=== PATIENT | female | born 1990 | race Caucasian/White ===

== ENCOUNTER → 2017-10-23 10:01 | Outpatient (CLI) | payer OTHER, MEDICAID, SELFPAY ==
[2017-10-23 11:19] LABS: Absolute Lymphocyte Count 1.88 X10^3/ul (0.83-4.51); Absolute Neutrophil Count 7.3 X10^3/uL (2.0-7.7); Basophil# 0.03 X10^3/uL; Basophil% 0.3 % (0-1); Eosinophil# 0.06 X10^3/uL; Eosinophils% 0.6 % (0-5); Hematocrit 39.5 % (37-47); Lymphocyte # 1.88 X10^3/ul (4.0); Lymphocyte % 19.4 % (19-41); Mean Corp Hgb Conc 32.9 g/gl (32-36); Mean Corpuscular Hgb 26.2 pg (27.0-32.0); Mean Corpuscular Volume 79.6 fL (81-99); Mean Platelet Vol. 9.9 fl (6.2-12.0); Monocyte# 0.38 X10^3/uL; Monocyte% 3.9 % (0-10); Neutrophil # 7.34 X10^3/uL (2.7-7.7); Neutrophil % 75.7 % (47-70); Platelet Count 298 K/mm3 (150-450); RBC Distribution Width CV 13.8 % (11.6-14.6); RBC Distribution Width SD 39.1 fl (35.1-43.9); Red Blood Count 4.96 M/mm3 (4.2-5.4); White Blood Count 9.7 K/mm3 (4.4-11.0)
[2017-10-23 11:24] LABS: POSITIVE COUNT NO; POSITIVE DIFFERENTIAL NO; POSITIVE MORPHOLOGY NO
[2017-10-23 11:52] LABS: ALB/GLOB Ratio 0.7 RATIO (0.9-2.4); AST(SGOT) 15 U/L (15-37); Alanine Aminotransfer ALT/SGPT 23 U/L (13-56); Albumin, Serum 3.3 g/dL (3.2-5.0); Alkaline Phosphatase 92 U/L (45-117); Anion Gap 8 (5-15); BUN 9 mg/dL (7-18); BUN/Creat Ratio 13.5 RATIO (10-20); Calcium,Total 8.6 mg/dL (8.5-10.1); Chloride 104 mmol/L (98-107); Creatinine, Serum 0.67 mg/dL (0.55-1.02); EST Glomerular Filtration Rate 111 mL/min (>60); Est Glom Filt Rate - Afr Amer 134 mL/min (>60); Globulin 4.8 g/dL (2.2-4.2); Glucose 132 mg/dL (74-106); LDH 199 U/L (84-246); Potassium 3.5 mmol/L (3.5-5.1); Protein, Total 8.1 g/dL (6.4-8.2); Sodium Level 136 mmol/L (136-145)
[2017-10-23 12:29] LABS: HIV - WCH Non-Reactive (Nonreactive); Rubella IgG 283.9 IU/mL
[2017-10-23 22:36] LABS: Chlamydia Trachomatis by PCR Negative (Negative); Neisserai gonorrhoeae by PCR Negative (Negative); Probe Check PASS; Sample Adequacy Control PASS; Specimen Processing Control PASS
[2017-10-26 13:04] LABS: HPV Reflexed? NOT INDICATED
[2017-10-27 01:08] LABS: Rapid Plasmin Reagin (RPR) NONREACTIVE (NONREACTIVE)
[2017-10-28 13:41] LABS: HEPATITIS B SURFACE AG Negative (Negative)
== END ==
PROVIDERS: Visit Provider Obstetrics & Gynecology
DX: Z12.4 Encounter for screening for malignant neoplasm of cervix (principal); O10.919 Unspecified pre-existing hypertension complicating pregnancy, unspecified trimester; Z3A.08 8 weeks gestation of pregnancy
CPT/HCPCS: 36415; 80053; 81220; 83615; 84550; 85025; 86592; 86703; 86762; 86850; 86900; 87086; 87088; 87340; 87491; 87591; 88175; G0145

== ENCOUNTER 2017-11-08 13:34 | Day surgery (SDC) | payer OTHER, MEDICAID, SELFPAY ==
--- NOTE | 2017-11-07 22:52 | PCM.HPOB.BLA ---
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 Is patient in pain?: No Allergies No Known Allergies Allergy (Unverified 11/07/17 14:30) Medications levothyroxine 200 mcg tablet 200 mcg PO DAILY 10/23/17 [History Confirmed 11/07/17] vitamin,calcium,qkmzhcff-ylcu-nudcc acid tablet 1 tab PO QDAY 10/23/17 [History Confirmed 11/07/17] blood pressure monitor kit See Dose Instructions .ROUTE .MEDSUPPLY #1 ea 10/26/17 [Rx Confirmed 11/06/17] Labetalol HCl 200 mg PO BID 11/07/17 [History Confirmed 11/07/17] Last Menstral Period: 08/28/17 Zika: Zika virus screening: Negative : No PFSH PFSH Medical History Thyroid disease (Acute) Surgical History kidney stone removal (Acute) Family History Grandfather Hyperlipidemia Social History Smoking Status: Never smoker alcohol intake: never substance use type: does not use caffeine: No frequency: 1-2 times per week seatbelt use: always do you feel safe at home: Yes additional social history: 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 She is still having persistent bleeding with some crmaping but denies any fevers. s he bleeds a few clots that are small and cahnges a pad every few hours. OB Visit [facility] Calculator Estimated Delivery Date 06/04/18 Based on LMP (certain) 08/28/17 Current WG 10w 1d Number 1 Expected Delivery Route/Plan Specific Issue/Plans flu vaccine declined Initial Weight: Not Recorded Date EGA Weight BP Urine Prot Glucose FHR FuHt Pres Mov CTX Dilation Effaced St Visit Note Provider Comments 10/30/17 9w 0d 11/06/17 10w 0d 226 lb 8 oz 135/90 ACOG First Trimester First Trimester: Desire for , Alcohol, Tobacco Cessation, Illicit/Recreational Drug/Substance Use, Intimate Partner Violence, Barriers to care, Unstable Housing, Communication Barriers, Environmental/Work Hazards, Anticipated Course of Care, Toxoplasmosis Precations, Use of Any medications, Sexual activity, Exercise, Dental Care, Sauna/Hot tub use, Seat Belt use, Childbirth classes/Hospital facilities, , Travel, Indications for US and Screening for Aneuploidy Diagnostics Diagnostics Labs Blood Type B POSITIVE 10/23/17 Antibody Screen NEGATIVE 10/23/17 Hct 39.5 % (37-47) 10/23/17 Hgb 13.0 g/dl (12.0-15.0) 10/23/17 Rubella IgG Antibody 283.9 IU/mL 10/23/17 RPR NONREACTIVE (NONREACTIVE) 10/23/17 Hep Bs Antigen Negative (Negative) 10/23/17 Chlam trachomat DNA PCR Negative (Negative) 10/23/17 N.gonorrhoeae DNA (PCR) Negative (Negative) 10/23/17 Details: HIV: Urine Culture: Sequential Screen: NIPT Screen: ROS Const Reports as per HPI, Denies fever(s) ENT Reports system reviewed and no additional complaints, except as docu Card Reports system reviewed and no additional complaints, except as docu Resp Reports system reviewed and no additional complaints, except as docu GI Reports as per HPI Reports abnormal vaginal bleeding, Reports as per HPI Musc Reports system reviewed and no additional complaints, except as docu Skin/Breast Reports system reviewed and no additional complaints, except as docu Neuro Yes system reviewed and no additional complaints, except as docu Endo Reports system reviewed and no additional complaints, except as docu Exam Const General: healthy appearing, comfortable, no acute distress HENMT Head: normal to inspection, normocephalic Neck Neck: no lymphadenopathy noted Thyroid: thyroid normal Chest Chest palpation & inspection: normal inspection of the chest Resp Effort & Inspection: normal respiratory effort Cardio Rate: regular rate Rhythm: regular rhythm GI Inspection: normal to inspection Palpation: soft, nontender External Female Exam: normal external appearance Speculum Exam - Vagina: normal appearance of the vagina, vaginal bleeding Bimanual Exam- Vagina & Uterus: uterine shape normal, uterus non-tender OB/External & Speculum: vaginal bleeding Speculum Exam: vaginal bleeding Skin General: no rashes or lesions noted Neuro General: no focal motor deficits Extrem General: normal to inspection, no pedal edema Psych Appearance: grossly normal Assessment & Plan Problems 1. Incomplete O03.4 Plan ultrasound performed and incomplete diagnosed. discussed with patient options and patient wishes to proceed with suction d and c on monday. will schedule for procedure. 11/08/17 patient seen and h and p reviewed no clinical updates needed Patricia Roberson
[2017-11-08 13:59] VITALS: BP 132/88; PULSE 97; RESP 18; TEMP 36.7; O2SAT 100; BMI 45.3
[2017-11-08 14:11] LABS: Hematocrit 39.3 % (37-47); Hemoglobin 12.7 g/dl (12.0-15.0); Mean Corp Hgb Conc 32.3 g/gl (32-36); Mean Corpuscular Hgb 25.9 pg (27.0-32.0); Mean Platelet Vol. 9.6 fl (6.2-12.0); Platelet Count 277 K/mm3 (150-450); RBC Distribution Width SD 40.2 fl (35.1-43.9); Red Blood Count 4.91 M/mm3 (4.2-5.4); White Blood Count 9.4 K/mm3 (4.4-11.0)
[2017-11-08 14:12] LABS: Scan Indicated on CBC? Y/N NO
[2017-11-08] MEDS: Doxycycline 100 MG CAPSULE PO (14:15)
--- NOTE | 2017-11-08 15:00 | POC_PTH ---
PATIENT: KAE WATTERS [place] [facility] [id number] AGE/SX: 26/F ROOM: RE11/08/[address]: Dr. Patricia Roberson MD : [id number] BED: DIS: 11/08/2017 SPEC #: [id number] RECD: 11/08/17 16:04 STATUS: SANTO LOLY #: [id number] NOÉ: 11/08/17 15:[address]: Patricia Roberson DEPT: SURGICAL PATHOLOGY RECD BY: Reza Marks ENTERED: 11/09/17 08:19 SP TYPE: PROD CONC OTHR DR: No Primary Care Phys Tissues: Product of conception, NOS Procedures: Surgery Specimen Level IV HEADER OPERATION: Dilatation and curettage, suction PRE-OP DIAGNOSIS: Incomplete TISSUE SUBMITTED: Products of conception MICROSCOPIC DIAGNOSIS Endometrium, curettage: Chorionic villi, decidualized stroma and trophoblastic cells consistent with products of conception. AM:anna 11/10/17 MICROSCOPIC DESCRIPTION Slides are reviewed. GROSS DESCRIPTION Received in fixative is one container labeled with the patient's name and designated products of conception. The specimen consists of multiple pieces of pink-red soft tissue that in aggregate measure 8 x 7 x 1.5 cm. tissue is not identified. Sole Ruffer tissue is submitted in two cassettes. The specimen will be given to patient after finishing the diagnosis. / MILTON:anna 11/09/17 TC:5 CPT: 07012
--- NOTE | 2017-11-08 15:01 | PCM.OPRPT ---
Problem List (1) Incomplete Status: Acute Report of Operation Date of Procedure: 11/08/17 Pre-Operative Diagnosis: incomplete ab Post-Operative Diagnosis: same Surgery/Procedure Performed:: suction d and c Type of Anesthesia:: Local MAC Specimen's removed: products of conception Estimated Blood Loss (mL): 100 cc Fluids Replaced: crystalloid Description of Procedure: Patient was evaluated preoperatively and found to have a missed at 1 weeks of with a pole only measuring 8 weeks 4 days with no heart tones seen. Patient was counseled and offered medical management versus surgical and patient chose suction D&C. Patient received IV anesthesia was prepped and draped in normal sterile fashion in the dorsal lithotomy position. Cervix was grasped with ring forceps and previously dilated to allow passage of a 8 mm suction curette. Uterus sounded 9 cm. Multiple passes were made with the suction curette to remove products of conception and then sharp curettage was formed to confirm all removal of packs of conception. All instruments were removed from the vagina and patient was awoken and taken recovery in stable condition. Grafts/Implants Used: none - Complications none
--- NOTE | 2017-11-08 15:01 | PCM.DC.D&C ---
Discharge Diet: No Restrictions Discharge Activity: Return to Normal Activity, May Shower, May Take a Tub Bath Allergies/Adverse Reactions: Allergies No Known Allergies Allergy (Unverified 11/07/17 14:30) Medications to take at Discharge levothyroxine 200 mcg tablet 200 mcg PO DAILY 10/23/17 vitamin,calcium,yiyiqsot-zzcy-syrew acid tablet 1 tab PO QDAY 10/23/17 blood pressure monitor kit See Dose Instructions .ROUTE .MEDSUPPLY #1 ea 10/26/17 Labetalol HCl 200 mg PO BID 11/07/17 Primary Care Physician: Care Physician,No Primary [Primary Care Provider] - Please Follow Up With: Patricia Roberson MD - [phone]
[2017-11-08 15:30] VITALS: BP 117/85; BP 132/88; PULSE 98; RESP 16; TEMP 36.4; O2SAT 100
[2017-11-08 15:35] VITALS: BP 132/88; BP 133/94; PULSE 92; RESP 16; O2SAT 100
[2017-11-08 15:40] VITALS: BP 118/81; BP 132/88; PULSE 90; RESP 16; O2SAT 100
[2017-11-08 15:45] VITALS: BP 132/88; BP 133/92; PULSE 98; RESP 16; TEMP 36.3; O2SAT 100
[2017-11-08 16:53] VITALS: BP 132/88
== END 2017-11-08 17:00 | disposition home or self-care (01) ==
LOC: SDC 13:36 → ACINP 13:38
PROVIDERS: Visit Provider Obstetrics & Gynecology
PROC: (CPT 59812; principal; 2017-11-08 14:45)
DX: O03.4 Incomplete spontaneous abortion without complication (principal); E07.9 Disorder of thyroid, unspecified; Z79.899 Other long term (current) drug therapy; I10 Essential (primary) hypertension
CPT/HCPCS: 01965; 59812; 85027; 86850; 86900; 88305; J7120

== ENCOUNTER → 2018-09-03 09:11 | Outpatient (CLI) | payer MEDICAID, SELFPAY ==
[2018-09-03 08:37] VITALS: BMI 45.2
[2018-09-03 09:38] LABS: Absolute Lymphocyte Count 1.55 X10^3/ul (0.83-4.51); Absolute Neutrophil Count 6.6 X10^3/uL (2.0-7.7); Basophil# 0.02 X10^3/uL; Basophil% 0.2 % (0-1); Eosinophil# 0.13 X10^3/uL; Eosinophils% 1.5 % (0-5); Hematocrit 39.5 % (37-47); Hemoglobin 12.6 g/dl (12.0-15.0); Lymphocyte # 1.55 X10^3/ul (4.0); Lymphocyte % 17.6 % (19-41); Mean Corp Hgb Conc 31.9 g/gl (32-36); Mean Corpuscular Hgb 25.9 pg (27.0-32.0); Mean Corpuscular Volume 81.3 fL (81-99); Mean Platelet Vol. 9.9 fl (6.2-12.0); Monocyte# 0.48 X10^3/uL; Monocyte% 5.4 % (0-10); Neutrophil # 6.62 X10^3/uL (2.7-7.7); Neutrophil % 75.1 % (47-70); Platelet Count 279 K/mm3 (150-450); RBC Distribution Width CV 14.8 % (11.6-14.6); RBC Distribution Width SD 43.3 fl (35.1-43.9); Red Blood Count 4.86 M/mm3 (4.2-5.4); White Blood Count 8.8 K/mm3 (4.4-11.0)
[2018-09-03 09:40] LABS: POSITIVE COUNT NO; POSITIVE DIFFERENTIAL NO; POSITIVE MORPHOLOGY NO
[2018-09-03 09:53] LABS: ALB/GLOB Ratio 0.8 RATIO (0.9-2.4); AST(SGOT) 18 U/L (15-37); Alanine Aminotransfer ALT/SGPT 32 U/L (13-56); Albumin, Serum 3.4 g/dL (3.2-5.0); Alkaline Phosphatase 75 U/L (45-117); Anion Gap 11 (5-15); BUN 10 mg/dL (7-18); BUN/Creat Ratio 13.8 RATIO (10-20); Calcium,Total 8.9 mg/dL (8.5-10.1); Chloride 104 mmol/L (98-107); Creatinine, Serum 0.73 mg/dL (0.55-1.02); EST Glomerular Filtration Rate 100 mL/min (>60); Est Glom Filt Rate - Afr Amer 121 mL/min (>60); Globulin 4.4 g/dL (2.2-4.2); Glucose 114 mg/dL (74-106); Glucose Challenge Gest 1H 50g 114 mg/dL (70-140); Potassium 3.8 mmol/L (3.5-5.1); Protein, Total 7.8 g/dL (6.4-8.2); Sodium Level 138 mmol/L (136-145)
[2018-09-03 10:59] LABS: HIV - WCH Non-Reactive (Nonreactive); Rubella IgG 317.7 IU/mL
[2018-09-03 15:04] LABS: Protein, Urine (Random) < 6.0 mg/dL (<11.9)
[2018-09-03 16:44] LABS: Chlamydia Trachomatis by PCR Negative (Negative); Neisserai gonorrhoeae by PCR Negative (Negative); Probe Check PASS; Sample Adequacy Control PASS; Specimen Processing Control PASS
[2018-09-04 08:11] LABS: HEPATITIS B SURFACE AG Negative (Negative)
[2018-09-07 00:14] LABS: Rapid Plasmin Reagin (RPR) NONREACTIVE (NONREACTIVE)
== END ==
PROVIDERS: Referring Provider Obstetrics & Gynecology; Visit Provider Obstetrics & Gynecology
DX: Z34.90 Encounter for supervision of normal pregnancy, unspecified, unspecified trimester (principal); O10.919 Unspecified pre-existing hypertension complicating pregnancy, unspecified trimester; Z3A.00 Weeks of gestation of pregnancy not specified
CPT/HCPCS: 36415; 80053; 82570; 82950; 84156; 85025; 86592; 86703; 86762; 86850; 86900; 87086; 87088; 87340; 87491; 87591

== ENCOUNTER → 2018-10-01 12:11 | Outpatient (CLI) | payer MEDICAID, SELFPAY ==
[2018-10-01 09:37] VITALS: BMI 45.2
[2018-10-01 13:25] LABS: T4 Free Direct 1.45 ng/dL (0.76-1.46); Thyroid Stim Hormone (TSH) 5.88 uIU/mL (0.358-3.74)
== END ==
PROVIDERS: Referring Provider Medical Genetics Clinical Genetics (M.D.); Visit Provider Medical Genetics Clinical Genetics (M.D.)
DX: Z34.90 Encounter for supervision of normal pregnancy, unspecified, unspecified trimester (principal); O99.281 Endocrine, nutritional and metabolic diseases complicating pregnancy, first trimester; E03.9 Hypothyroidism, unspecified; Z3A.00 Weeks of gestation of pregnancy not specified
CPT/HCPCS: 36415; 84439; 84443

== ENCOUNTER → 2018-10-02 14:56 | Outpatient (CLI) | payer MEDICAID, SELFPAY ==
[2018-10-02 14:50] VITALS: BMI 45.2
== END ==
PROVIDERS: Visit Provider Obstetrics & Gynecology
DX: Z34.90 Encounter for supervision of normal pregnancy, unspecified, unspecified trimester (principal)
CPT/HCPCS: 36415; 87086; 87088

== ENCOUNTER → 2018-10-29 09:03 | Outpatient (CLI) | payer MEDICAID, SELFPAY ==
[2018-10-29 08:17] VITALS: BMI 45.2
== END ==
PROVIDERS: Referring Provider Obstetrics & Gynecology; Visit Provider Obstetrics & Gynecology
DX: Z34.82 Encounter for supervision of other normal pregnancy, second trimester (principal)
CPT/HCPCS: 36415

== ENCOUNTER → 2018-12-06 08:10 | Outpatient (CLI) | payer MEDICAID, SELFPAY ==
[2018-12-04 08:41] VITALS: BMI 49.4
[2018-12-06 12:37] LABS: Cholesterol 166 mg/dL (200); High Density Lipoprotein 81 mg/dL; T4 Free Direct 1.49 ng/dL (0.76-1.46); Thyroid Stim Hormone (TSH) 3.29 uIU/mL (0.358-3.74); Triglycerides 147 mg/dL; Very Low Density Lipoprotein 29 mg/dL (5-40)
== END ==
PROVIDERS: PCP Internal Medicine; Visit Provider Internal Medicine
DX: I10 Essential (primary) hypertension (principal); E03.9 Hypothyroidism, unspecified
CPT/HCPCS: 36415; 80061; 84439; 84443

== ENCOUNTER → 2019-01-08 | Outpatient (CLI) | payer MEDICAID, SELFPAY ==
[2019-01-08 15:53] VITALS: BMI 49.4
== END | disposition home or self-care (01) ==
LOC: LABSPEC 17:04
PROVIDERS: Referring Provider Obstetrics & Gynecology; Visit Provider Obstetrics & Gynecology
DX: R30.0 Dysuria (principal)
CPT/HCPCS: 87086; 87088

== ENCOUNTER → 2019-01-23 | Outpatient (CLI) | payer MEDICAID, SELFPAY ==
[2019-01-23 08:41] VITALS: BMI 50.5
[2019-01-23 09:56] LABS: Absolute Lymphocyte Count 1.43 X10^3/ul (0.83-4.51); Absolute Neutrophil Count 8.4 X10^3/uL (2.0-7.7); Basophil# 0.02 X10^3/uL; Basophil% 0.2 % (0-1); Eosinophil# 0.08 X10^3/uL; Eosinophils% 0.8 % (0-5); Hematocrit 34.9 % (37-47); Hemoglobin 11.7 g/dl (12.0-15.0); Lymphocyte # 1.43 X10^3/ul (4.0); Lymphocyte % 13.7 % (19-41); Mean Corp Hgb Conc 33.5 g/gl (32-36); Mean Corpuscular Hgb 26.9 pg (27.0-32.0); Mean Corpuscular Volume 80.2 fL (81-99); Mean Platelet Vol. 10.1 fl (6.2-12.0); Monocyte# 0.52 X10^3/uL; Neutrophil % 80.1 % (47-70); Platelet Count 265 K/mm3 (150-450); RBC Distribution Width SD 42.3 fl (35.1-43.9); Red Blood Count 4.35 M/mm3 (4.2-5.4); White Blood Count 10.5 K/mm3 (4.4-11.0)
[2019-01-23 09:59] LABS: POSITIVE COUNT NO; POSITIVE DIFFERENTIAL NO; POSITIVE MORPHOLOGY NO
[2019-01-23 10:18] LABS: Glucose Challenge Gest 1H 50g 146 mg/dL (70-140)
== END | disposition home or self-care (01) ==
LOC: PAVLAB 09:14
PROVIDERS: Family Provider Internal Medicine; PCP Internal Medicine; Referring Provider Nurse Practitioner Women's Health; Visit Provider Nurse Practitioner Women's Health
DX: O09.90 Supervision of high risk pregnancy, unspecified, unspecified trimester (principal); Z3A.00 Weeks of gestation of pregnancy not specified
CPT/HCPCS: 82950; 85025

== ENCOUNTER → 2019-02-01 | Outpatient (CLI) | payer MEDICAID, SELFPAY ==
[2019-01-23 10:49] VITALS: BMI 50.5
[2019-02-01 09:55] LABS: Glucose GTT-Gestational 2 Hr 84 mg/dL (<165)
[2019-02-01 09:58] LABS: Glucose GTT-Gestational 1 Hr 142 mg/dL (<190)
[2019-02-01 11:03] LABS: Glucose GTT-Gestational 3 Hr 64 L (<145)
[2019-02-01 13:43] LABS: Glucose GTT-Gestation. Fasting 83 mg/dL (<105)
== END | disposition home or self-care (01) ==
PROVIDERS: Family Provider Internal Medicine; PCP Internal Medicine; Referring Provider Nurse Practitioner Women's Health; Visit Provider Nurse Practitioner Women's Health
DX: Z34.90 Encounter for supervision of normal pregnancy, unspecified, unspecified trimester (principal); R73.09 Other abnormal glucose
CPT/HCPCS: 36415; 82951; 82952; 86850

== ENCOUNTER → 2019-02-08 | Outpatient (CLI) | payer MEDICAID, SELFPAY ==
[2019-02-08 08:44] VITALS: BMI 50.5
[2019-02-08 09:05] LABS: Absolute Lymphocyte Count 1.71 X10^3/ul (0.83-4.51); Absolute Neutrophil Count 6.8 X10^3/uL (2.0-7.7); Basophil# 0.02 X10^3/uL; Basophil% 0.2 % (0-1); Eosinophil# 0.09 X10^3/uL; Hematocrit 34.7 % (37-47); Hemoglobin 11.5 g/dl (12.0-15.0); Lymphocyte # 1.71 X10^3/ul (4.0); Lymphocyte % 18.4 % (19-41); Mean Corp Hgb Conc 33.1 g/gl (32-36); Mean Corpuscular Hgb 26.9 pg (27.0-32.0); Mean Corpuscular Volume 81.3 fL (81-99); Mean Platelet Vol. 10.2 fl (6.2-12.0); Monocyte# 0.67 X10^3/uL; Monocyte% 7.2 % (0-10); Neutrophil # 6.76 X10^3/uL (2.7-7.7); Platelet Count 244 K/mm3 (150-450); RBC Distribution Width CV 15.2 % (11.6-14.6); RBC Distribution Width SD 44.4 fl (35.1-43.9); Red Blood Count 4.27 M/mm3 (4.2-5.4); White Blood Count 9.3 K/mm3 (4.4-11.0)
[2019-02-08 09:06] LABS: POSITIVE COUNT NO; POSITIVE DIFFERENTIAL NO; POSITIVE MORPHOLOGY NO
[2019-02-08 09:28] LABS: ALB/GLOB Ratio 0.6 RATIO (0.9-2.4); AST(SGOT) 18 U/L (15-37); Alanine Aminotransfer ALT/SGPT 22 U/L (13-56); Albumin, Serum 2.6 g/dL (3.2-5.0); Alkaline Phosphatase 92 U/L (45-117); Anion Gap 5 (5-15); BUN 11 mg/dL (7-18); BUN/Creat Ratio 16.6 RATIO (10-20); Calcium,Total 8.7 mg/dL (8.5-10.1); Chloride 108 mmol/L (98-107); Creatinine, Serum 0.66 mg/dL (0.55-1.02); EST Glomerular Filtration Rate 111 mL/min (>60); Est Glom Filt Rate - Afr Amer 135 mL/min (>60); Globulin 4.3 g/dL (2.2-4.2); Glucose 82 mg/dL (74-106); Potassium 4.1 mmol/L (3.5-5.1); Protein, Total 6.9 g/dL (6.4-8.2); Sodium Level 137 mmol/L (136-145)
== END | disposition home or self-care (01) ==
PROVIDERS: Family Provider Internal Medicine; PCP Internal Medicine; Referring Provider Obstetrics & Gynecology; Visit Provider Obstetrics & Gynecology
DX: O10.919 Unspecified pre-existing hypertension complicating pregnancy, unspecified trimester (principal); Z3A.00 Weeks of gestation of pregnancy not specified
CPT/HCPCS: 36415; 80053; 85025

== ENCOUNTER → 2019-02-25 | Outpatient (CLI) | payer MEDICAID, SELFPAY ==
[2019-02-08 08:44] VITALS: BMI 50.5
[2019-02-25 09:59] LABS: Thyroid Stim Hormone (TSH) 4.86 uIU/mL (0.358-3.74)
== END | disposition home or self-care (01) ==
LOC: LAB 08:50
PROVIDERS: Family Provider Internal Medicine; PCP Internal Medicine
DX: O92.5 Suppressed lactation (principal)
CPT/HCPCS: 36415; 84443

== ENCOUNTER → 2019-10-25 13:34 | Outpatient (CLI) | payer MEDICAID, SELFPAY ==
[2019-10-18 14:03] VITALS: BMI 50.5
[2019-10-25 14:19] LABS: Absolute Lymphocyte Count 2.13 X10^3/uL (0.83-4.51); Absolute Neutrophil Count 6.9 X10^3/uL (2.0-7.7); Basophil# 0.05 X10^3/uL; Basophil% 0.5 % (0-1); Eosinophil# 0.18 X10^3/uL; Eosinophils% 1.8 % (0-5); Hematocrit 40.4 % (37-47); Hemoglobin 12.8 g/dL (12.0-15.0); Lymphocyte # 2.13 X10^3/ul (4.0); Lymphocyte % 21.3 % (19-41); Mean Corp Hgb Conc 31.7 g/dL (32-36); Mean Corpuscular Hgb 24.6 pg (27.0-32.0); Mean Corpuscular Volume 77.5 fL (81-99); Mean Platelet Vol. 9.6 fl (6.2-12.0); Monocyte# 0.68 X10^3/uL; Monocyte% 6.8 % (0-10); NRBC Flagged by Analyzer 0 % (0-5); Neutrophil # 6.94 X10^3/uL (2.7-7.7); Neutrophil % 69.2 % (47-70); Platelet Count 313 K/mm3 (150-450); RBC Distribution Width CV 15.8 % (11.6-14.6); RBC Distribution Width SD 43.8 fl (35.1-43.9); Red Blood Count 5.21 M/mm3 (4.2-5.4)
[2019-10-25 14:33] LABS: Hemoglobin A1c 5.3 % (4.2-6.3)
[2019-10-25 15:15] LABS: ALB/GLOB Ratio 0.8 RATIO (0.9-2.4); AST(SGOT) 20 U/L (15-37); Alanine Aminotransfer ALT/SGPT 31 U/L (13-56); Albumin, Serum 3.6 g/dL (3.2-5.0); Alkaline Phosphatase 94 U/L (45-117); Anion Gap 6 (5-15); BUN 11 mg/dL (7-18); BUN/Creat Ratio 16.3 RATIO (10-20); Calcium,Total 8.8 mg/dL (8.5-10.1); Chloride 104 mmol/L (98-107); Cholesterol 177 mg/dL (200); Creatinine, Serum 0.68 mg/dL (0.55-1.02); EST Glomerular Filtration Rate 108 mL/min (>60); Est Glom Filt Rate - Afr Amer 131 mL/min (>60); Globulin 4.6 g/dL (2.2-4.2); Glucose 89 mg/dL (74-106); High Density Lipoprotein 48 mg/dL; Potassium 3.9 mmol/L (3.5-5.1); Protein, Total 8.2 g/dL (6.4-8.2); Sodium Level 136 mmol/L (136-145); Thyroid Stim Hormone (TSH) 2.02 uIU/mL (0.358-3.74); Triglycerides 166 mg/dL; Very Low Density Lipoprotein 33 mg/dL (5-40)
== END ==
PROVIDERS: PCP Internal Medicine; Referring Provider Internal Medicine; Visit Provider Internal Medicine
DX: I10 Essential (primary) hypertension (principal); E03.9 Hypothyroidism, unspecified; E66.01 Morbid (severe) obesity due to excess calories; Z68.43 Body mass index [BMI] 50.0-59.9, adult
CPT/HCPCS: 36415; 80053; 80061; 83036; 84443; 85025

== ENCOUNTER → 2020-07-31 11:42 | Outpatient (CLI) | payer MEDICAID, SELFPAY ==
[2020-07-31 11:07] VITALS: BMI 50.1
[2020-07-31 16:09] LABS: Absolute Lymphocyte Count 1.95 X10^3/uL (0.83-4.51); Absolute Neutrophil Count 6.1 X10^3/uL (2.0-7.7); Basophil# 0.05 X10^3/uL; Basophil% 0.6 % (0-1); Eosinophil# 0.21 X10^3/uL; Eosinophils% 2.4 % (0-5); Hemoglobin 12.9 g/dL (12.0-15.0); Lymphocyte # 1.95 X10^3/ul (4.0); Lymphocyte % 21.9 % (19-41); Mean Corp Hgb Conc 32.3 g/dL (32-36); Mean Corpuscular Hgb 26.2 pg (27.0-32.0); Mean Corpuscular Volume 81.1 fL (81-99); Mean Platelet Vol. 9.8 fl (6.2-12.0); Monocyte# 0.55 X10^3/uL; Monocyte% 6.2 % (0-10); NRBC Flagged by Analyzer 0 % (0-5); Neutrophil # 6.11 X10^3/uL (2.7-7.7); Neutrophil % 68.6 % (47-70); Platelet Count 307 K/mm3 (150-450); RBC Distribution Width CV 14.6 % (11.6-14.6); RBC Distribution Width SD 42.3 fl (35.1-43.9); Red Blood Count 4.93 M/mm3 (4.2-5.4); White Blood Count 8.9 K/mm3 (4.4-11.0)
[2020-07-31 16:36] LABS: ALB/GLOB Ratio 0.7 RATIO (0.9-2.4); AST(SGOT) 19 U/L (15-37); Alanine Aminotransfer ALT/SGPT 30 U/L (13-56); Albumin, Serum 3.3 g/dL (3.2-5.0); Alkaline Phosphatase 100 U/L (45-117); Anion Gap 4 (5-15); BUN 13 mg/dL (7-18); BUN/Creat Ratio 18.5 RATIO (10-20); Calcium,Total 8.8 mg/dL (8.5-10.1); Chloride 107 mmol/L (98-107); Cholesterol 149 mg/dL (200); EST Glomerular Filtration Rate 103 mL/min (>60); Est Glom Filt Rate - Afr Amer 125 mL/min (>60); Globulin 4.6 g/dL (2.2-4.2); Glucose 106 mg/dL (74-106); High Density Lipoprotein 47 mg/dL; Potassium 3.8 mmol/L (3.5-5.1); Protein, Total 7.9 g/dL (6.4-8.2); Sodium Level 136 mmol/L (136-145); T4 Free Direct 1.34 ng/dL (0.76-1.46); Thyroid Stim Hormone (TSH) 2.56 uIU/mL (0.358-3.74); Triglycerides 178 mg/dL; Very Low Density Lipoprotein 36 mg/dL (5-40)
== END ==
PROVIDERS: PCP Internal Medicine; Referring Provider Nurse Practitioner Family; Visit Provider Nurse Practitioner Family
DX: I10 Essential (primary) hypertension (principal); E03.9 Hypothyroidism, unspecified
CPT/HCPCS: 36415; 80053; 80061; 84439; 84443; 85025

== ENCOUNTER → 2021-08-03 15:10 | Outpatient (CLI) | payer MEDICAID, SELFPAY ==
[2021-08-03 16:59] LABS: Absolute Lymphocyte Count 1.81 X10^3/uL (0.83-4.51); Absolute Neutrophil Count 5.7 X10^3/uL (2.0-7.7); Basophil# 0.03 X10^3/uL; Basophil% 0.4 % (0-1); Eosinophil# 0.22 X10^3/uL; Eosinophils% 2.6 % (0-5); Hematocrit 40.3 % (37-47); Hemoglobin 12.9 g/dL (12.0-15.0); Lymphocyte # 1.81 X10^3/ul (0.83-4.51); Lymphocyte % 21.5 % (19-41); Mean Corpuscular Hgb 27.1 pg (27.0-32.0); Mean Corpuscular Volume 84.7 fL (81-99); Mean Platelet Vol. 10.2 fl (6.2-12.0); Monocyte# 0.66 X10^3/uL; Monocyte% 7.8 % (0-10); NRBC Flagged by Analyzer 0 % (0-5); Neutrophil # 5.67 X10^3/uL (2.7-7.7); Neutrophil % 67.3 % (47-70); Platelet Count 215 K/mm3 (150-450); RBC Distribution Width CV 16.5 % (11.6-14.6); Red Blood Count 4.76 M/mm3 (4.2-5.4); White Blood Count 8.4 K/mm3 (4.4-11.0)
[2021-08-03 17:20] LABS: ALB/GLOB Ratio 0.7 RATIO (0.9-2.4); AST(SGOT) 23 U/L (15-37); Alanine Aminotransfer ALT/SGPT 80 U/L (13-56); Albumin, Serum 2.8 g/dL (3.2-5.0); Alkaline Phosphatase 82 U/L (45-117); Anion Gap 6 (5-15); BUN 14 mg/dL (7-18); BUN/Creat Ratio 21.8 RATIO (10-20); Calcium,Total 9.3 mg/dL (8.5-10.1); Chloride 107 mmol/L (98-107); Creatinine, Serum 0.64 mg/dL (0.55-1.02); EST Glomerular Filtration Rate 113 mL/min (>60); Est Glom Filt Rate - Afr Amer 137 mL/min (>60); Globulin 4.1 g/dL (2.2-4.2); Glucose 143 mg/dL (74-106); Potassium 3.6 mmol/L (3.5-5.1); Protein, Total 6.9 g/dL (6.4-8.2); Sodium Level 140 mmol/L (136-145); T4 Free Direct 1.07 ng/dL (0.76-1.46)
== END ==
PROVIDERS: PCP Internal Medicine; Visit Provider Physician Assistant
DX: I10 Essential (primary) hypertension (principal); E03.9 Hypothyroidism, unspecified; R22.0 Localized swelling, mass and lump, head
CPT/HCPCS: 36415; 80053; 82533; 84439; 84443; 85025

== ENCOUNTER → 2021-08-10 10:47 | Outpatient (CLI) | payer MEDICAID, SELFPAY ==
[2021-08-10 12:50] LABS: Thyroid Stim Hormone (TSH) 7.36 uIU/mL (0.358-3.74)
== END ==
PROVIDERS: PCP Internal Medicine; Referring Provider Physician Assistant; Visit Provider Physician Assistant
DX: E03.9 Hypothyroidism, unspecified (principal)
CPT/HCPCS: 36415; 84443

== ENCOUNTER 2021-08-26 10:20 | Outpatient (CLI) | payer MEDICAID, SELFPAY ==
--- NOTE | 2021-08-26 10:22 | EKG12_ITS ---
Test Reason : TACHY Blood Pressure : / mmHG Vent. Rate : 101 BPM Atrial Rate : 101 BPM P-R Int : 130 ms QRS Dur : 080 ms QT Int : 338 ms P-R-T Axes : 036 050 028 degrees QTc Int : 438 ms Sinus tachycardia Low voltage QRS Borderline ECG Confirmed by UCHE CARLISLE MD ([id number]), business editor JASWANT LUGO ([id number]) on 08/27/2021 9:37:17 AM Referred By: Suzi Nichols Confirmed By:UCHE CARLISLE MD
== END 2021-08-26 23:59 | disposition short-term general hospital (02) ==
LOC: PSN 10:21
PROVIDERS: PCP Internal Medicine; Referring Provider Physician Assistant; Visit Provider Physician Assistant
DX: R00.2 Palpitations (principal); R00.0 Tachycardia, unspecified
CPT/HCPCS: 93005; 93225; 93226

== ENCOUNTER → 2021-12-21 | Outpatient (CLI) | payer MEDICAID, SELFPAY ==
[2021-12-21 12:35] LABS: Thyroid Stim Hormone (TSH) 2.89 uIU/mL (0.358-3.74)
== END | disposition home or self-care (01) ==
PROVIDERS: Physician Assistant; PCP Internal Medicine; Referring Provider Internal Medicine; Visit Provider Internal Medicine
DX: E03.9 Hypothyroidism, unspecified (principal)
CPT/HCPCS: 36415; 84443